=== PATIENT | male | born 2000 | race Caucasian/White ===

== ENCOUNTER 2021-10-19 19:45 | Emergency (ER) | payer BC, OTHER ==
[2021-10-19] MEDS ORDERED: Ibuprofen 200 MG TAB ONE (20:36)
[2021-10-19] MEDS ORDERED: traMADol HCl 50 MG TAB ONE (20:36)
== END 2021-10-19 21:24 | disposition home or self-care (01) ==
LOC: CSHERS 19:45
DX: S92.511A Displaced fracture of proximal phalanx of right lesser toe(s), initial encounter for closed fracture (principal); W22.8XXA Striking against or struck by other objects, initial encounter